=== PATIENT | male | born 1965 | race African-American/Black ===

== ENCOUNTER 2022-10-03 12:28 | Inpatient (IN) ==
[2022-10-03 13:09] LABS: Basophils % 0.1 % (0.0-0.8); Eosinophils % 0.1 % (0.00-10.9); Hematocrit 23.9 VOL% (42.0-52.0); Hemoglobin 7.6 GM/DL (14.0-18.0); Immature Granulocytes % 0.8 %; Immature Granulocytes Absolute 0.16 #; Lymphocytes # 0.7 10*3/uL (1.4-4.0); Lymphocytes % 3.3 % (21.2-54.2); Mean Corpuscular HGB Conc 31.8 GM/DL (32-36); Mean Corpuscular Volume 77.9 FL (87-102); Mean Platelet Volume 9.1 FL (9.6-12.0); Monocytes # 0.6 10*3/uL (0.11-0.8); Neutrophils % 92.7 % (38.7-73.9); Platelet Count 548 T/CUMM (130-400); Red Blood Count 3.07 MC/CUMM (3.8-5.5); Red Cell Distribution Width 18.5 % (9.3-17.3); White Blood Count 20.4 T/CUMM (4-12)
[2022-10-03 13:31] LABS: Lymphocytes 4 % (20-55); Total Cells Counted 100
[2022-10-03 13:32] LABS: Anisocytosis 1+; Hypochromia 1+; Microcytosis 1+; Platelet Estimate Increased
[2022-10-03 13:33] LABS: Macrocytosis 1+
[2022-10-03 13:34] LABS: Bacteria,Urine Few /HPF (Few); Bilirubin,Urine Negative (Negative); Blood, Urine Moderate mg/dL (Negative); Glucose,Urine (UA) 50 mg/dL (Negative); Hyaline Casts,Urine 3 /LPF (0-3); Ketones,Urine 5 mg/dL (Negative); Mucus,Urine Occasional /LPF (Occasional); Nitrite,Urine Negative (Negative); Protein,Urine 100 mg/dL (Negative); RBC,Urine 33 /HPF (0-4); Squamous Epithelial Cell,Urine Few /HPF (0-10); Urine Appearance CLOUDY (Clear); Urine Color Yellow (Yellow); Urine Specific Gravity 1.017 (1.001-1.035); Urine Urobilinogen < 2.0 eU/dL (<2.0)
[2022-10-03 13:45] LABS: Alanine Aminotransferase < 9 U/L (16-61); Albumin 2.8 G/DL (3.4-5.0); Alkaline Phosphatase 122 U/L (45-117); Amylase 288 U/L (25-115); Aspartate Amino Transferase 7 U/L (0-37); Blood Urea Nitrogen 204 MG/DL (7-18); Calcium 9.6 MG/DL (8.5-10.1); Carbon Dioxide 11 MMOL/L (21-32); Chloride 100 MMOL/L (98-107); Glucose 98 MG/DL (74-106); Osmolality,Calculated 337.1 MOS/KG (273-304); Sodium 135 MMOL/L (136-145); Total Protein 8.4 G/DL (6.4-8.2)
[2022-10-03 13:52] LABS: Potassium 6.1 MMOL/L (3.5-5.1)
[2022-10-03] MEDS ORDERED: cefTRIAXone 1,000 MG VIAL IM STA (15:10)
[2022-10-03] MEDS ORDERED: SODIUM CHLORIDE 0.9% 1,000 ML IV STA (15:11)
[2022-10-03] MEDS ORDERED: ACETAMINOPHEN 325 MG TABLET PO PRN (15:57)
[2022-10-03] MEDS ORDERED: INSULIN REGULAR 10 UNIT, CALCIUM GLUCONATE 1,000 MG in DEXTROSE 10% 250 ML IV ONE (16:12)
[2022-10-03 16:24] LABS: Cancer Antigen 19-9 9.94 U/ML (0-35); Carcinoembryonic Antigen 0.9 NG/ML (0.0-5.0)
[2022-10-03 16:35] LABS: Folate 15.91 NG/ML (5.38-24.0); Vitamin B12 > 2000 PG/ML (211-911)
[2022-10-03 16:47] LABS: % Iron Saturation 15.7 % (18-50); Ferritin 1585.6 ng/mL (26-388)
[2022-10-03] MEDS ORDERED: LEVALBUTEROL 1.25 MG/3 ML NEB RESP TX PRN (18:29)
[2022-10-03 18:40] LABS: Arterial Base Excess iSTAT -13 MMOL/L (-2.5-2.5); Arterial Bicarbonate iSTAT 12.6 MMOL/L (20-26); Arterial O2 Saturation iSTAT 97 % (95-100); Arterial PCO2 iSTAT 26 MM HG (35-48); Arterial PO2 iSTAT 95 MM HG (80-95); Arterial Total CO2 iSTAT 13 MMO/L (23-27); Arterial pH iSTAT 7.288 (7.35-7.45)
[2022-10-03] MEDS: HEPARIN 5,000 UNIT/1 ML VIAL SUBCUT SCH (18:56)
[2022-10-03] MEDS: SODIUM BICARB INJ 50 MEQ in DEXTROSE 5% NACL 0.45% 1,000 ML IV SCH (19:48)
[2022-10-03] MEDS: DOCUSATE SODIUM 100 MG CAPSULE PO SCH (21:10)
[2022-10-03] MEDS: cefTRIAXone 1,000 MG in SODIUM CHLORIDE 0.9% 100 ML IV SCH (21:11)
[2022-10-03] MEDS ORDERED: PANTOPRAZOLE 40 MG TABLET PO ONE (23:00)
[2022-10-04] MEDS: SODIUM BICARB INJ 50 MEQ in DEXTROSE 5% NACL 0.45% 1,000 ML IV SCH (00:32)
[2022-10-04 06:07] LABS: INR 1.3; PT Patient Result 14.5 SECS (10.1-12.1)
[2022-10-04 06:40] LABS: Risk Ratio 2.59; Thyroid Stimulating Hormone 1.15 uIU/ml (0.358-3.74); VLDL Cholesterol 13.2 MG/DL
[2022-10-04 06:54] LABS: Alanine Aminotransferase < 6 U/L (16-61); Albumin 2.3 G/DL (3.4-5.0); Alkaline Phosphatase 99 U/L (45-117); Aspartate Amino Transferase 9 U/L (0-37); Bilirubin,Total < 0.39 MG/DL (0.20-1.00); Blood Urea Nitrogen 193 MG/DL (7-18); Calcium 9.7 MG/DL (8.5-10.1); Carbon Dioxide 13 MMOL/L (21-32); Chloride 105 MMOL/L (98-107); Glucose 104 MG/DL (74-106); Osmolality,Calculated 336.8 MOS/KG (273-304); Sodium 137 MMOL/L (136-145)
[2022-10-04 07:00] LABS: Basophils % 0.1 % (0.0-0.8); Eosinophils # 0.1 10*3/uL (0.0-0.87); Eosinophils % 0.9 % (0.00-10.9); Hematocrit 20.7 VOL% (42.0-52.0); Hemoglobin 6.6 GM/DL (14.0-18.0); Immature Granulocytes % 0.7 %; Immature Granulocytes Absolute 0.11 #; Lymphocytes # 0.8 10*3/uL (1.4-4.0); Mean Corpuscular HGB Conc 31.9 GM/DL (32-36); Mean Corpuscular Volume 77.8 FL (87-102); Mean Platelet Volume 9.8 FL (9.6-12.0); Monocytes # 0.8 10*3/uL (0.11-0.8); Neutrophils % 88.3 % (38.7-73.9); Platelet Count 494 T/CUMM (130-400); Red Blood Count 2.66 MC/CUMM (3.8-5.5); Red Cell Distribution Width 18.5 % (9.3-17.3); White Blood Count 15.3 T/CUMM (4-12)
[2022-10-04 07:04] LABS: Potassium 6.1 MMOL/L (3.5-5.1)
[2022-10-04] MEDS ORDERED: SODIUM CHLORIDE 0.9% 1,000 ML IV PRN (07:30)
[2022-10-04] MEDS ORDERED: INSULIN REGULAR 10 UNIT, CALCIUM GLUCONATE 1,000 MG in DEXTROSE 10% 250 ML IV ONE (08:00)
[2022-10-04] MEDS: POLYETHYLENE GLYCOL POWDER 17 GM PACK PO SCH (11:19)
[2022-10-04] MEDS: PANTOPRAZOLE 40 MG TABLET PO SCH (11:19)
[2022-10-04] MEDS: DOCUSATE SODIUM 100 MG CAPSULE PO SCH ×2 (11:19→22:39)
[2022-10-04] MEDS ORDERED: DIAZEPAM 5 MG TABLET PO ONE (11:26)
[2022-10-04] MEDS ORDERED: SODIUM BICARB INJ 150 MEQ in DEXTROSE 5% NACL 0.45% 1,000 ML IV SCH (12:56)
[2022-10-04] MEDS: SODIUM ZIRCONIUM CYCLOSILICATE 10 GM PACK PO SCH ×2 (16:37→22:38)
[2022-10-04] MEDS: cefTRIAXone 1,000 MG in SODIUM CHLORIDE 0.9% 100 ML IV SCH (22:38)
[2022-10-05 07:01] LABS: Total Protein (Chem) 8.1 G/DL (6.4-8.3)
[2022-10-05 08:30] LABS: Albumin (SPE) Rel % 45.1 %; Alpha 1 (SPE) Rel % 5.5 %; Alpha 2 (SPE) Rel % 14.4 %; Beta (SPE) Rel % 10.4 %; Gamma (SPE) Rel % 24.6 %
[2022-10-05 08:32] LABS: Basophils # 0.1 10*3/uL (0.0-0.2); Basophils % 0.5 % (0.0-0.8); Eosinophils # 0.2 10*3/uL (0.0-0.87); Eosinophils % 1.2 % (0.00-10.9); Hematocrit 26.5 VOL% (42.0-52.0); Hemoglobin 8.6 GM/DL (14.0-18.0); Immature Granulocytes % 0.5 %; Immature Granulocytes Absolute 0.08 #; Lymphocytes # 0.8 10*3/uL (1.4-4.0); Lymphocytes % 5.4 % (21.2-54.2); Mean Corpuscular HGB Conc 32.5 GM/DL (32-36); Mean Platelet Volume 9.9 FL (9.6-12.0); Monocytes # 1.1 10*3/uL (0.11-0.8); Monocytes % 6.9 % (1.7-12.7); Neutrophils % 85.5 % (38.7-73.9); Platelet Count 469 T/CUMM (130-400); Red Blood Count 3.27 MC/CUMM (3.8-5.5); Red Cell Distribution Width 19.1 % (9.3-17.3); White Blood Count 15.4 T/CUMM (4-12)
[2022-10-05 08:36] LABS: Albumin (SPE) 3.7 G/DL (3.2-5.3); Alpha 1 (SPE) 0.4 G/DL (0.1-0.4)
[2022-10-05 08:37] LABS: Alpha 2 (SPE) 1.2 G/DL (0.4-1.0); Beta (SPE) 0.8 G/DL (0.5-1.1)
[2022-10-05 08:44] LABS: Osmolality,Calculated 335.1 MOS/KG (273-304); Potassium 5.7 MMOL/L (3.5-5.1)
[2022-10-05] MEDS: PANTOPRAZOLE 40 MG TABLET PO SCH (09:03)
[2022-10-05] MEDS: DOCUSATE SODIUM 100 MG CAPSULE PO SCH ×2 (09:03→22:01)
[2022-10-05] MEDS: ONDANSETRON 4 MG/2 ML VIAL IV PRN (09:03)
[2022-10-05] MEDS: POLYETHYLENE GLYCOL POWDER 17 GM PACK PO SCH (09:03)
[2022-10-05] MEDS: SODIUM ZIRCONIUM CYCLOSILICATE 10 GM PACK PO SCH ×3 (09:03→22:01)
[2022-10-06 06:01] LABS: Basophils % 0.2 % (0.0-0.8); Eosinophils # 0.2 10*3/uL (0.0-0.87); Eosinophils % 1.2 % (0.00-10.9); Hematocrit 25.1 VOL% (42.0-52.0); Hemoglobin 8.2 GM/DL (14.0-18.0); Immature Granulocytes % 0.8 %; Immature Granulocytes Absolute 0.13 #; Lymphocytes # 1.1 10*3/uL (1.4-4.0); Lymphocytes % 6.8 % (21.2-54.2); Mean Corpuscular HGB Conc 32.7 GM/DL (32-36); Mean Corpuscular Volume 80.7 FL (87-102); Platelet Count 436 T/CUMM (130-400); Red Blood Count 3.11 MC/CUMM (3.8-5.5); Red Cell Distribution Width 19.3 % (9.3-17.3); White Blood Count 16.5 T/CUMM (4-12)
[2022-10-06 06:20] LABS: Calcium 9.6 MG/DL (8.5-10.1); Potassium 4.9 MMOL/L (3.5-5.1)
[2022-10-06] MEDS: ONDANSETRON 4 MG/2 ML VIAL IV PRN ×2 (08:01→13:20)
[2022-10-06] MEDS: DOCUSATE SODIUM 100 MG CAPSULE PO SCH ×2 (09:04→21:48)
[2022-10-06] MEDS: LINACLOTIDE 145 MCG CAPSULE PO SCH (09:04)
[2022-10-06] MEDS: SODIUM ZIRCONIUM CYCLOSILICATE 10 GM PACK PO SCH (09:04)
[2022-10-06] MEDS: PANTOPRAZOLE 40 MG TABLET PO SCH (09:04)
[2022-10-06] MEDS: POLYETHYLENE GLYCOL POWDER 17 GM PACK PO SCH (09:06)
[2022-10-07] MEDS: ALUMINUM/MAGNES/SIMETH MAX STR 30 ML UDCUP PO PRN (02:51)
[2022-10-07 05:51] LABS: Basophils # 0.1 10*3/uL (0.0-0.2); Basophils % 0.3 % (0.0-0.8); Eosinophils # 0.2 10*3/uL (0.0-0.87); Eosinophils % 1.3 % (0.00-10.9); Hematocrit 24.6 VOL% (42.0-52.0); Immature Granulocytes % 0.8 %; Immature Granulocytes Absolute 0.12 #; Lymphocytes % 6.4 % (21.2-54.2); Mean Corpuscular HGB Conc 32.5 GM/DL (32-36); Mean Corpuscular Volume 79.4 FL (87-102); Mean Platelet Volume 10.1 FL (9.6-12.0); Monocytes # 1.1 10*3/uL (0.11-0.8); Monocytes % 6.7 % (1.7-12.7); Neutrophils % 84.5 % (38.7-73.9); Platelet Count 447 T/CUMM (130-400); Red Cell Distribution Width 19.3 % (9.3-17.3); White Blood Count 15.7 T/CUMM (4-12)
[2022-10-07 06:24] LABS: Osmolality,Calculated 334.2 MOS/KG (273-304); Potassium 4.2 MMOL/L (3.5-5.1)
[2022-10-07] MEDS: ONDANSETRON 4 MG/2 ML VIAL IV PRN (08:03)
[2022-10-07] MEDS: PANTOPRAZOLE 40 MG TABLET PO SCH (10:03)
[2022-10-07] MEDS: LINACLOTIDE 145 MCG CAPSULE PO SCH (10:03)
[2022-10-07] MEDS: DOCUSATE SODIUM 100 MG CAPSULE PO SCH ×2 (10:04→21:16)
[2022-10-07] MEDS: POLYETHYLENE GLYCOL POWDER 17 GM PACK PO SCH (10:06)
[2022-10-07] MEDS: SODIUM BICARBONATE 650 MG TABLET PO SCH ×2 (16:18→21:16)
[2022-10-08 05:47] LABS: Basophils # 0.1 10*3/uL (0.0-0.2); Basophils % 0.5 % (0.0-0.8); Eosinophils # 0.3 10*3/uL (0.0-0.87); Eosinophils % 2.4 % (0.00-10.9); Hematocrit 22.7 VOL% (42.0-52.0); Hemoglobin 7.4 GM/DL (14.0-18.0); Immature Granulocytes % 0.6 %; Immature Granulocytes Absolute 0.08 #; Lymphocytes # 0.9 10*3/uL (1.4-4.0); Lymphocytes % 7.2 % (21.2-54.2); Mean Corpuscular HGB Conc 32.6 GM/DL (32-36); Mean Corpuscular Volume 79.6 FL (87-102); Mean Platelet Volume 9.7 FL (9.6-12.0); Monocytes % 7.7 % (1.7-12.7); Neutrophils % 81.6 % (38.7-73.9); Platelet Count 414 T/CUMM (130-400); Red Blood Count 2.85 MC/CUMM (3.8-5.5); Red Cell Distribution Width 19.4 % (9.3-17.3)
[2022-10-08 06:07] LABS: Calcium 10.1 MG/DL (8.5-10.1); Osmolality,Calculated 338.7 MOS/KG (273-304); Potassium 4.3 MMOL/L (3.5-5.1)
[2022-10-08 06:58] LABS: Random Urine Protein (Bench) 104 MG/DL (<11.9)
[2022-10-08] MEDS: LINACLOTIDE 145 MCG CAPSULE PO SCH (07:30)
[2022-10-08] MEDS: ONDANSETRON 4 MG/2 ML VIAL IV PRN ×2 (07:48→15:32)
[2022-10-08] MEDS: POLYETHYLENE GLYCOL POWDER 17 GM PACK PO SCH (09:53)
[2022-10-08] MEDS: DOCUSATE SODIUM 100 MG CAPSULE PO SCH ×2 (09:53→20:52)
[2022-10-08] MEDS: SODIUM BICARBONATE 650 MG TABLET PO SCH ×3 (09:53→20:52)
[2022-10-08] MEDS: MORPHINE 2 MG/1 ML SYRINGE IV PRN (12:58)
[2022-10-08] MEDS ORDERED: cefTRIAXone 1,000 MG in SODIUM CHLORIDE 0.9% 100 ML IV ONE (14:22)
[2022-10-08] MEDS: PANTOPRAZOLE 40 MG TABLET PO SCH (15:29)
[2022-10-08 17:50] LABS: Glucose,Urine (UA) Negative (Negative); Protein,Urine 30 mg/dL (Negative); Urine Appearance Clear (Clear); Urine Color Yellow (Yellow); Urine pH 5.5 (4.5-8.0)
[2022-10-08 17:51] LABS: Bilirubin,Urine Negative (Negative); Blood, Urine Trace mg/dL (Negative); Ketones,Urine Trace mg/dL (Negative); Nitrite,Urine Negative (Negative); Urine Urobilinogen 0.2 eU/dL (<2.0)
[2022-10-08 17:53] LABS: Bacteria,Urine Occasional /HPF (Few); Hyaline Casts,Urine 5 /LPF (0-3); Mucus,Urine Occasional /LPF (Occasional); RBC,Urine 2 /HPF (0-4); Squamous Epithelial Cell,Urine Occasional /HPF (0-10)
[2022-10-08] MEDS: ALUMINUM/MAGNES/SIMETH MAX STR 30 ML UDCUP PO PRN (18:35)
[2022-10-09] MEDS: ONDANSETRON 4 MG/2 ML VIAL IV PRN (05:35)
[2022-10-09 06:00] LABS: Basophils # 0.1 10*3/uL (0.0-0.2); Basophils % 0.5 % (0.0-0.8); Eosinophils # 0.3 10*3/uL (0.0-0.87); Eosinophils % 2.1 % (0.00-10.9); Hematocrit 24.2 VOL% (42.0-52.0); Hemoglobin 7.8 GM/DL (14.0-18.0); Immature Granulocytes % 0.9 %; Immature Granulocytes Absolute 0.11 #; Lymphocytes # 0.9 10*3/uL (1.4-4.0); Lymphocytes % 7.1 % (21.2-54.2); Mean Corpuscular HGB Conc 32.2 GM/DL (32-36); Mean Corpuscular Volume 80.4 FL (87-102); Monocytes # 1.2 10*3/uL (0.11-0.8); Monocytes % 9.8 % (1.7-12.7); Neutrophils % 79.6 % (38.7-73.9); Platelet Count 459 T/CUMM (130-400); Red Blood Count 3.01 MC/CUMM (3.8-5.5); Red Cell Distribution Width 19.3 % (9.3-17.3); White Blood Count 12.6 T/CUMM (4-12)
[2022-10-09] MEDS ORDERED: cefTRIAXone 1,000 MG in SODIUM CHLORIDE 0.9% 100 ML IV ONE (06:00)
[2022-10-09 06:30] LABS: Potassium 4.4 MMOL/L (3.5-5.1)
[2022-10-09] MEDS: PANTOPRAZOLE 40 MG TABLET PO SCH (09:10)
[2022-10-09] MEDS: DOCUSATE SODIUM 100 MG CAPSULE PO SCH ×2 (09:10→20:56)
[2022-10-09] MEDS: SODIUM BICARBONATE 650 MG TABLET PO SCH ×3 (09:10→20:57)
[2022-10-09] MEDS: POLYETHYLENE GLYCOL POWDER 17 GM PACK PO SCH (09:10)
[2022-10-09] MEDS: LINACLOTIDE 145 MCG CAPSULE PO SCH (09:10)
[2022-10-09] MEDS ORDERED: DEXTROSE 5% NACL 0.45% 1,000 ML IV SCH (13:30)
[2022-10-09] MEDS: MORPHINE 2 MG/1 ML SYRINGE IV PRN (14:26)
[2022-10-10] MEDS: PANTOPRAZOLE 40 MG TABLET PO SCH ×2 (05:10→08:31)
[2022-10-10 05:26] LABS: Basophils # 0.1 10*3/uL (0.0-0.2); Basophils % 0.4 % (0.0-0.8); Eosinophils # 0.3 10*3/uL (0.0-0.87); Eosinophils % 2.4 % (0.00-10.9); Hematocrit 21.9 VOL% (42.0-52.0); Immature Granulocytes % 0.9 %; Immature Granulocytes Absolute 0.11 #; Lymphocytes # 0.7 10*3/uL (1.4-4.0); Lymphocytes % 5.4 % (21.2-54.2); Mean Corpuscular Volume 81.4 FL (87-102); Mean Platelet Volume 9.6 FL (9.6-12.0); Monocytes # 1.3 10*3/uL (0.11-0.8); Monocytes % 9.7 % (1.7-12.7); Neutrophils % 81.2 % (38.7-73.9); Platelet Count 368 T/CUMM (130-400); Red Blood Count 2.69 MC/CUMM (3.8-5.5); Red Cell Distribution Width 19.6 % (9.3-17.3); White Blood Count 12.9 T/CUMM (4-12)
[2022-10-10 05:50] LABS: Calcium 10.3 MG/DL (8.5-10.1); Osmolality,Calculated 339.7 MOS/KG (273-304); Potassium 4.4 MMOL/L (3.5-5.1)
[2022-10-10] MEDS ORDERED: SODIUM CHLORIDE 0.9% 1,000 ML IV PRN (08:25)
[2022-10-10] MEDS: DOCUSATE SODIUM 100 MG CAPSULE PO SCH ×2 (08:31→20:53)
[2022-10-10] MEDS: SODIUM BICARBONATE 650 MG TABLET PO SCH ×4 (08:31→21:00)
[2022-10-10] MEDS: LINACLOTIDE 145 MCG CAPSULE PO SCH (08:31)
[2022-10-10] MEDS: POLYETHYLENE GLYCOL POWDER 17 GM PACK PO SCH (08:34)
[2022-10-10] MEDS: MORPHINE 2 MG/1 ML SYRINGE IV PRN (18:10)
[2022-10-11] MEDS: ONDANSETRON 4 MG/2 ML VIAL IV PRN (04:34)
[2022-10-11] MEDS: MORPHINE 2 MG/1 ML SYRINGE IV PRN ×2 (04:35→18:16)
[2022-10-11 05:31] LABS: Basophils % 0.3 % (0.0-0.8); Eosinophils # 0.3 10*3/uL (0.0-0.87); Eosinophils % 2.2 % (0.00-10.9); Hematocrit 26.9 VOL% (42.0-52.0); Hemoglobin 8.5 GM/DL (14.0-18.0); Immature Granulocytes Absolute 0.12 #; Lymphocytes # 0.8 10*3/uL (1.4-4.0); Lymphocytes % 6.2 % (21.2-54.2); Mean Corpuscular HGB Conc 31.6 GM/DL (32-36); Mean Corpuscular Volume 82.3 FL (87-102); Mean Platelet Volume 9.9 FL (9.6-12.0); Monocytes # 1.3 10*3/uL (0.11-0.8); Monocytes % 10.5 % (1.7-12.7); Neutrophils % 79.8 % (38.7-73.9); Platelet Count 366 T/CUMM (130-400); Red Blood Count 3.27 MC/CUMM (3.8-5.5); Red Cell Distribution Width 18.6 % (9.3-17.3); White Blood Count 12.5 T/CUMM (4-12)
[2022-10-11 06:06] LABS: Calcium 10.1 MG/DL (8.5-10.1); Osmolality,Calculated 334.3 MOS/KG (273-304); Potassium 4.2 MMOL/L (3.5-5.1)
[2022-10-11] MEDS: LINACLOTIDE 145 MCG CAPSULE PO SCH (09:24)
[2022-10-11] MEDS: SODIUM BICARBONATE 650 MG TABLET PO SCH ×3 (09:24→20:30)
[2022-10-11] MEDS: PANTOPRAZOLE 40 MG VIAL IV SCH (09:25)
[2022-10-11] MEDS: DOCUSATE SODIUM 100 MG CAPSULE PO SCH ×2 (09:27→20:30)
[2022-10-11] MEDS: POLYETHYLENE GLYCOL POWDER 17 GM PACK PO SCH (09:41)
[2022-10-12 05:07] LABS: Basophils # 0.1 10*3/uL (0.0-0.2); Basophils % 0.5 % (0.0-0.8); Eosinophils # 0.4 10*3/uL (0.0-0.87); Eosinophils % 2.9 % (0.00-10.9); Hematocrit 29.2 VOL% (42.0-52.0); Hemoglobin 9.3 GM/DL (14.0-18.0); Immature Granulocytes % 1.4 %; Immature Granulocytes Absolute 0.17 #; Lymphocytes # 1.2 10*3/uL (1.4-4.0); Lymphocytes % 9.6 % (21.2-54.2); Mean Corpuscular HGB Conc 31.8 GM/DL (32-36); Mean Corpuscular Volume 82.7 FL (87-102); Mean Platelet Volume 9.6 FL (9.6-12.0); Monocytes # 1.2 10*3/uL (0.11-0.8); Monocytes % 9.5 % (1.7-12.7); Neutrophils % 76.1 % (38.7-73.9); Platelet Count 355 T/CUMM (130-400); Red Blood Count 3.53 MC/CUMM (3.8-5.5); Red Cell Distribution Width 18.7 % (9.3-17.3); White Blood Count 12.6 T/CUMM (4-12)
[2022-10-12] MEDS: ONDANSETRON 4 MG/2 ML VIAL IV PRN (05:25)
[2022-10-12 05:27] LABS: Calcium 10.8 MG/DL (8.5-10.1); Potassium 4.5 MMOL/L (3.5-5.1)
[2022-10-12] MEDS ORDERED: cefTRIAXone 1,000 MG in SODIUM CHLORIDE 0.9% 100 ML IV ONE (06:30)
[2022-10-12] MEDS: SODIUM CHLORIDE 0.9% 1,000 ML IV SCH ×2 (06:58→18:01)
[2022-10-12] MEDS ORDERED: MIDAZOLAM 2 MG/2 ML VIAL ONE (07:04)
[2022-10-12] MEDS ORDERED: fentaNYL 100 MCG/2 ML VIAL ONE (07:04)
[2022-10-12] MEDS ORDERED: SEVOFLURANE 1 UNIT/15 MINUTE INH ONE (07:38)
[2022-10-12] MEDS ORDERED: propofoL 200 MG/20 ML VIAL IV ONE (07:38)
[2022-10-12] MEDS ORDERED: LIDOCAINE 2% 5 ML VIAL ONE (07:38)
[2022-10-12] MEDS ORDERED: ONDANSETRON 4 MG/2 ML VIAL IV PRN (07:52)
[2022-10-12] MEDS ORDERED: HYDROmorphone 1 MG/1 ML SYRINGE IV PRN (07:52)
[2022-10-12] MEDS: DOCUSATE SODIUM 100 MG CAPSULE PO SCH ×2 (08:58→20:26)
[2022-10-12] MEDS: PANTOPRAZOLE 40 MG VIAL IV SCH (08:59)
[2022-10-12] MEDS: LINACLOTIDE 145 MCG CAPSULE PO SCH (08:59)
[2022-10-12] MEDS: POLYETHYLENE GLYCOL POWDER 17 GM PACK PO SCH (08:59)
[2022-10-12] MEDS: MORPHINE 2 MG/1 ML SYRINGE IV PRN ×2 (08:59→13:39)
[2022-10-12] MEDS: SODIUM BICARBONATE 650 MG TABLET PO SCH ×3 (09:17→20:26)
[2022-10-13] MEDS: ONDANSETRON 4 MG/2 ML VIAL IV PRN (03:40)
[2022-10-13] MEDS: SODIUM CHLORIDE 0.9% 1,000 ML IV SCH (03:40)
[2022-10-13 05:00] LABS: Basophils # 0.1 10*3/uL (0.0-0.2); Basophils % 0.4 % (0.0-0.8); Eosinophils # 0.3 10*3/uL (0.0-0.87); Eosinophils % 2.8 % (0.00-10.9); Hemoglobin 8.3 GM/DL (14.0-18.0); Immature Granulocytes % 1.1 %; Immature Granulocytes Absolute 0.14 #; Lymphocytes % 8.1 % (21.2-54.2); Mean Corpuscular HGB Conc 30.7 GM/DL (32-36); Mean Platelet Volume 9.7 FL (9.6-12.0); Monocytes # 1.3 10*3/uL (0.11-0.8); Monocytes % 10.4 % (1.7-12.7); Neutrophils % 77.2 % (38.7-73.9); Platelet Count 340 T/CUMM (130-400); Red Blood Count 3.14 MC/CUMM (3.8-5.5); Red Cell Distribution Width 18.8 % (9.3-17.3); White Blood Count 12.3 T/CUMM (4-12)
[2022-10-13 05:27] LABS: Calcium 10.7 MG/DL (8.5-10.1); Osmolality,Calculated 319.4 MOS/KG (273-304); Potassium 4.4 MMOL/L (3.5-5.1)
[2022-10-13] MEDS: DOCUSATE SODIUM 100 MG CAPSULE PO SCH ×2 (08:33→21:53)
[2022-10-13] MEDS: LINACLOTIDE 145 MCG CAPSULE PO SCH (08:33)
[2022-10-13] MEDS: SODIUM BICARBONATE 650 MG TABLET PO SCH ×3 (08:34→21:53)
[2022-10-13] MEDS: PANTOPRAZOLE 40 MG VIAL IV SCH (08:34)
[2022-10-13] MEDS: POLYETHYLENE GLYCOL POWDER 17 GM PACK PO SCH (08:35)
[2022-10-13] MEDS: ONDANSETRON 4 MG/2 ML VIAL IV SCH ×2 (10:49→17:14)
[2022-10-13] MEDS: MORPHINE 2 MG/1 ML SYRINGE IV PRN ×3 (10:49→22:58)
[2022-10-13] MEDS: DEXTROSE 5% NACL 0.45% 1,000 ML IV SCH ×2 (17:32→18:00)
[2022-10-14] MEDS: ONDANSETRON 4 MG/2 ML VIAL IV SCH ×3 (02:55→17:39)
[2022-10-14 06:01] LABS: Basophils # 0.1 10*3/uL (0.0-0.2); Basophils % 0.3 % (0.0-0.8); Eosinophils # 0.2 10*3/uL (0.0-0.87); Eosinophils % 1.5 % (0.00-10.9); Hemoglobin 8.2 GM/DL (14.0-18.0); Immature Granulocytes Absolute 0.14 #; Mean Corpuscular HGB Conc 30.4 GM/DL (32-36); Mean Corpuscular Volume 86.8 FL (87-102); Mean Platelet Volume 9.8 FL (9.6-12.0); Monocytes # 1.2 10*3/uL (0.11-0.8); Monocytes % 8.4 % (1.7-12.7); Neutrophils % 81.8 % (38.7-73.9); Platelet Count 327 T/CUMM (130-400); Red Blood Count 3.11 MC/CUMM (3.8-5.5); Red Cell Distribution Width 18.8 % (9.3-17.3); White Blood Count 14.5 T/CUMM (4-12)
[2022-10-14 06:40] LABS: Calcium 10.6 MG/DL (8.5-10.1); Osmolality,Calculated 305.8 MOS/KG (273-304); Potassium 4.6 MMOL/L (3.5-5.1)
[2022-10-14] MEDS: DOCUSATE SODIUM 100 MG CAPSULE PO SCH ×2 (09:31→21:45)
[2022-10-14] MEDS: SODIUM BICARBONATE 650 MG TABLET PO SCH ×3 (09:31→21:45)
[2022-10-14] MEDS: amLODIPine 5 MG TABLET PO SCH (09:32)
[2022-10-14] MEDS: LINACLOTIDE 145 MCG CAPSULE PO SCH (09:32)
[2022-10-14] MEDS: POLYETHYLENE GLYCOL POWDER 17 GM PACK PO SCH (09:32)
[2022-10-14] MEDS: PANTOPRAZOLE 40 MG VIAL IV SCH (11:01)
[2022-10-14] MEDS: MORPHINE 2 MG/1 ML SYRINGE IV PRN (17:38)
[2022-10-15] MEDS: ONDANSETRON 4 MG/2 ML VIAL IV SCH ×3 (02:32→17:17)
[2022-10-15] MEDS: HEPARIN 5,000 UNIT/1 ML VIAL SUBCUT SCH (04:15)
[2022-10-15 05:00] LABS: Basophils # 0.1 10*3/uL (0.0-0.2); Basophils % 0.5 % (0.0-0.8); Eosinophils # 0.4 10*3/uL (0.0-0.87); Eosinophils % 3.3 % (0.00-10.9); Hematocrit 26.3 VOL% (42.0-52.0); Hemoglobin 8.1 GM/DL (14.0-18.0); Immature Granulocytes % 1.3 %; Immature Granulocytes Absolute 0.17 #; Lymphocytes # 1.1 10*3/uL (1.4-4.0); Lymphocytes % 8.6 % (21.2-54.2); Mean Corpuscular HGB Conc 30.8 GM/DL (32-36); Mean Corpuscular Volume 87.7 FL (87-102); Mean Platelet Volume 10.2 FL (9.6-12.0); Monocytes % 7.9 % (1.7-12.7); Neutrophils % 78.4 % (38.7-73.9); Platelet Count 302 T/CUMM (130-400); Red Cell Distribution Width 18.8 % (9.3-17.3); White Blood Count 13.1 T/CUMM (4-12)
[2022-10-15 05:29] LABS: Calcium 11.1 MG/DL (8.5-10.1); Osmolality,Calculated 297.7 MOS/KG (273-304)
[2022-10-15] MEDS ORDERED: DENOSUMAB 120 MG/1.7 ML VIAL SUBCUT ONE (08:41)
[2022-10-15] MEDS: SODIUM BICARBONATE 650 MG TABLET PO SCH ×3 (08:43→20:25)
[2022-10-15] MEDS: PANTOPRAZOLE 40 MG VIAL IV SCH (08:43)
[2022-10-15] MEDS: amLODIPine 5 MG TABLET PO SCH (08:43)
[2022-10-15] MEDS: LINACLOTIDE 145 MCG CAPSULE PO SCH (08:43)
[2022-10-15] MEDS: POLYETHYLENE GLYCOL POWDER 17 GM PACK PO SCH (08:43)
[2022-10-15] MEDS: DOCUSATE SODIUM 100 MG CAPSULE PO SCH ×2 (08:44→20:25)
[2022-10-15] MEDS: MORPHINE 2 MG/1 ML SYRINGE IV PRN ×2 (13:18→18:21)
[2022-10-15] MEDS ORDERED: ZOLEDRONIC ACID 4 MG/100 ML PREMIX IV SCH (15:00)
[2022-10-15] MEDS ORDERED: ZOLEDRONIC ACID 4 MG/100 ML PREMIX IV ONE (15:00)
[2022-10-16] MEDS: ONDANSETRON 4 MG/2 ML VIAL IV SCH (02:28)
[2022-10-16 04:33] LABS: Basophils # 0.1 10*3/uL (0.0-0.2); Basophils % 0.5 % (0.0-0.8); Eosinophils # 0.4 10*3/uL (0.0-0.87); Hematocrit 27.7 VOL% (42.0-52.0); Hemoglobin 8.2 GM/DL (14.0-18.0); Immature Granulocytes % 1.3 %; Immature Granulocytes Absolute 0.16 #; Lymphocytes # 0.9 10*3/uL (1.4-4.0); Lymphocytes % 7.1 % (21.2-54.2); Mean Corpuscular HGB Conc 29.6 GM/DL (32-36); Mean Corpuscular Volume 87.1 FL (87-102); Mean Platelet Volume 9.5 FL (9.6-12.0); Monocytes # 0.7 10*3/uL (0.11-0.8); Monocytes % 5.4 % (1.7-12.7); Neutrophils % 82.7 % (38.7-73.9); Platelet Count 318 T/CUMM (130-400); Red Blood Count 3.18 MC/CUMM (3.8-5.5); Red Cell Distribution Width 18.6 % (9.3-17.3); White Blood Count 12.5 T/CUMM (4-12)
[2022-10-16 04:54] LABS: Calcium 11.1 MG/DL (8.5-10.1); Osmolality,Calculated 295.6 MOS/KG (273-304)
[2022-10-16 04:57] LABS: Alanine Aminotransferase < 9 U/L (16-61); Albumin 2.3 G/DL (3.4-5.0); Alkaline Phosphatase 106 U/L (45-117); Aspartate Amino Transferase 13 U/L (0-37); Blood Urea Nitrogen 32 MG/DL (7-18); Calcium 11.3 MG/DL (8.5-10.1); Carbon Dioxide 26 MMOL/L (21-32); Chloride 111 MMOL/L (98-107); Glucose 89 MG/DL (74-106); Osmolality,Calculated 291.8 MOS/KG (273-304); Potassium 3.9 MMOL/L (3.5-5.1); Sodium 144 MMOL/L (136-145)
[2022-10-16] MEDS ORDERED: BUPIVACAINE MPF 0.25% 10 ML VIAL ONE (09:13)
[2022-10-16] MEDS ORDERED: HEPARIN 5,000 UNIT/1 ML VIAL ONE (09:13)
[2022-10-16] MEDS ORDERED: LIDOCAINE 1% 5 ML VIAL ONE (09:13)
[2022-10-16] MEDS ORDERED: fentaNYL 100 MCG/2 ML VIAL ONE (09:29)
[2022-10-16] MEDS ORDERED: MIDAZOLAM 2 MG/2 ML VIAL ONE ×2 (09:30→09:46)
[2022-10-16] MEDS ORDERED: propofoL 200 MG/20 ML VIAL IV ONE (09:40)
[2022-10-16] MEDS ORDERED: SODIUM CHLORIDE 0.9% 1,000 ML IV ONE (09:40)
[2022-10-16] MEDS ORDERED: SODIUM CHLORIDE 0.9% 100 ML IV ONE (09:40)
[2022-10-16] MEDS ORDERED: LIDOCAINE 2% 5 ML VIAL ONE (09:40)
[2022-10-16] MEDS ORDERED: TISSUE ADHESIVE 1 EACH APPLICATOR TOP ONE (10:03)
[2022-10-16] MEDS: SODIUM BICARBONATE 650 MG TABLET PO SCH ×3 (11:02→21:12)
[2022-10-16] MEDS: PANTOPRAZOLE 40 MG VIAL IV SCH (11:02)
[2022-10-16] MEDS: amLODIPine 5 MG TABLET PO SCH (11:02)
[2022-10-16] MEDS: SODIUM CHLORIDE 0.9% 1,000 ML IV SCH ×2 (11:03→23:57)
[2022-10-16] MEDS: LINACLOTIDE 145 MCG CAPSULE PO SCH (11:03)
[2022-10-16] MEDS: DOCUSATE SODIUM 100 MG CAPSULE PO SCH ×2 (11:04→21:10)
[2022-10-16] MEDS: POLYETHYLENE GLYCOL POWDER 17 GM PACK PO SCH (11:05)
[2022-10-16] MEDS: MORPHINE 2 MG/1 ML SYRINGE IV PRN (16:43)
[2022-10-16] MEDS: ALUMINUM/MAGNES/SIMETH MAX STR 30 ML UDCUP PO PRN (23:58)
[2022-10-17] MEDS: MORPHINE 2 MG/1 ML SYRINGE IV PRN (03:20)
[2022-10-17] MEDS ORDERED: ONDANSETRON 4 MG/2 ML VIAL IV PRN (04:09)
[2022-10-17 05:14] LABS: Basophils % 0.3 % (0.0-0.8); Eosinophils % 0.4 % (0.00-10.9); Hemoglobin 7.9 GM/DL (14.0-18.0); Immature Granulocytes % 1.6 %; Immature Granulocytes Absolute 0.11 #; Lymphocytes # 0.4 10*3/uL (1.4-4.0); Lymphocytes % 6.2 % (21.2-54.2); Mean Corpuscular HGB Conc 30.4 GM/DL (32-36); Mean Platelet Volume 9.6 FL (9.6-12.0); Monocytes # 0.3 10*3/uL (0.11-0.8); Monocytes % 3.9 % (1.7-12.7); Neutrophils % 87.6 % (38.7-73.9); Platelet Count 249 T/CUMM (130-400); Red Blood Count 2.99 MC/CUMM (3.8-5.5); Red Cell Distribution Width 18.6 % (9.3-17.3); White Blood Count 6.9 T/CUMM (4-12)
[2022-10-17 05:20] VITALS: BP 148/80
[2022-10-17 05:41] LABS: Alanine Aminotransferase < 9 U/L (16-61); Albumin 2.1 G/DL (3.4-5.0); Alkaline Phosphatase 83 U/L (45-117); Aspartate Amino Transferase 24 U/L (0-37); Blood Urea Nitrogen 25 MG/DL (7-18); Calcium 9.6 MG/DL (8.5-10.1); Carbon Dioxide 25 MMOL/L (21-32); Chloride 110 MMOL/L (98-107); Glucose 95 MG/DL (74-106); Osmolality,Calculated 286.1 MOS/KG (273-304); Potassium 3.9 MMOL/L (3.5-5.1); Sodium 142 MMOL/L (136-145)
[2022-10-17] MEDS: SODIUM BICARBONATE 650 MG TABLET PO SCH (10:13)
[2022-10-17] MEDS: amLODIPine 5 MG TABLET PO SCH (10:13)
[2022-10-17] MEDS: PANTOPRAZOLE 40 MG VIAL IV SCH (10:13)
[2022-10-17] MEDS: POLYETHYLENE GLYCOL POWDER 17 GM PACK PO SCH (10:16)
[2022-10-17] MEDS: DOCUSATE SODIUM 100 MG CAPSULE PO SCH (10:16)
[2022-10-17] MEDS: LINACLOTIDE 145 MCG CAPSULE PO SCH (10:16)
[2022-10-17 11:03] LABS: Bilirubin,Urine Negative (Negative); Blood, Urine Large mg/dL (Negative); Glucose,Urine (UA) Negative (Negative); Ketones,Urine Negative (Negative); Mucus,Urine Occasional /LPF (Occasional); Nitrite,Urine Negative (Negative); Protein,Urine 100 mg/dL (Negative); RBC,Urine 162 /HPF (0-4); Squamous Epithelial Cell,Urine Occasional /HPF (0-10); Urine Appearance Clear (Clear); Urine Color Yellow (Yellow)
[2022-10-17] MEDS ORDERED: LEVOFLOXACIN INJ 500 MG/100 ML PREMIX IV ONE (11:25)
[2022-10-17] MEDS ORDERED: LEVOFLOXACIN INJ 250 MG/50 ML PREMIX IV SCH (11:30)
[2022-10-17] MEDS: SODIUM CHLORIDE 0.9% 1,000 ML IV SCH (11:44)
== END 2022-10-17 12:21 | disposition home or self-care (01) | DRG 656 ==
LOC: N.ED 12:28 → SUATTDRO 15:57 → N.EDINP 15:57 → N.TELEN 17:56
PROVIDERS: ADMIT Internal Medicine; ATTEND Hospitalist

== ENCOUNTER 2023-01-02 16:29 | Observation (INO) ==
[2023-01-02 20:03] LABS: Basophils % 0.3 % (0.0-0.8); Eosinophils # 0.4 10*3/uL (0.0-0.87); Eosinophils % 4.3 % (0.00-10.9); Hematocrit 21.3 VOL% (42.0-52.0); Hemoglobin 6.5 GM/DL (14.0-18.0); Immature Granulocytes % 6.1 %; Immature Granulocytes Absolute 0.53 #; Lymphocytes # 0.6 10*3/uL (1.4-4.0); Lymphocytes % 7.3 % (21.2-54.2); Mean Corpuscular HGB Conc 30.5 GM/DL (32-36); Mean Corpuscular Volume 89.5 FL (87-102); Monocytes # 0.6 10*3/uL (0.11-0.8); Monocytes % 7.2 % (1.7-12.7); NRBC # 0.06 10*3/uL; Neutrophils % 74.8 % (38.7-73.9); Platelet Count 231 T/CUMM (130-400); Red Blood Count 2.38 MC/CUMM (3.8-5.5); Red Cell Distribution Width 17.8 % (9.3-17.3); White Blood Count 8.63 T/CUMM (4-12)
[2023-01-02 20:21] LABS: Calcium 10.1 MG/DL (8.5-10.1); Osmolality,Calculated 274.8 MOS/KG (273-304); Potassium 3.5 MMOL/L (3.5-5.1)
[2023-01-02 20:24] LABS: Band Neutrophils 5 % (0-10); Eosinophils 4 % (0-10); Lymphocytes 9 % (20-55); Nucleated Red Blood Cells 3 /100 WBC (0-5); Total Cells Counted 100
[2023-01-02 20:25] LABS: Anisocytosis Slight; Elliptocytes Few; Hypochromia 1+; Platelet Estimate Adequate
[2023-01-02] MEDS ORDERED: ACETAMINOPHEN 325 MG TABLET PO PRN (20:55)
[2023-01-02] MEDS ORDERED: PROMETHAZINE 25 MG/1 ML VIAL IM PRN (20:55)
[2023-01-02] MEDS ORDERED: SODIUM CHLORIDE 0.9% 1,000 ML IV PRN (20:55)
[2023-01-02] MEDS ORDERED: hydrALAZINE 20 MG/1 ML VIAL IV PRN (20:55)
[2023-01-02] MEDS ORDERED: FUROSEMIDE 40 MG/4 ML VIAL IV PRN (21:05)
[2023-01-03 05:57] LABS: INR 1.1; PT Patient Result 11.9 SECS (10.1-12.1); Partial Thromboplastin Time 32.1 SECS (23.7-32.9)
[2023-01-03 06:15] LABS: Albumin 2.5 G/DL (3.4-5.0); Bilirubin,Total 0.5 MG/DL (0.20-1.00); Calcium 9.9 MG/DL (8.5-10.1); Potassium 3.6 MMOL/L (3.5-5.1); Total Protein 7.8 G/DL (6.4-8.2)
[2023-01-03 06:25] LABS: Basophils % 0.5 % (0.0-0.8); Eosinophils # 0.4 10*3/uL (0.0-0.87); Eosinophils % 4.9 % (0.00-10.9); Hematocrit 22.7 VOL% (42.0-52.0); Hemoglobin 7.2 GM/DL (14.0-18.0); Immature Granulocytes % 7.7 %; Immature Granulocytes Absolute 0.66 #; Lymphocytes # 0.5 10*3/uL (1.4-4.0); Lymphocytes % 5.6 % (21.2-54.2); Mean Corpuscular HGB Conc 31.7 GM/DL (32-36); Mean Corpuscular Volume 89.4 FL (87-102); Mean Platelet Volume 9.1 FL (9.6-12.0); Monocytes # 0.8 10*3/uL (0.11-0.8); Monocytes % 8.9 % (1.7-12.7); NRBC # 0.02 10*3/uL; Neutrophils % 72.4 % (38.7-73.9); Platelet Count 204 T/CUMM (130-400); Red Blood Count 2.54 MC/CUMM (3.8-5.5); Red Cell Distribution Width 16.1 % (9.3-17.3); White Blood Count 8.57 T/CUMM (4-12)
[2023-01-03 06:51] LABS: Band Neutrophils 1 % (0-10); Eosinophils 5 % (0-10); Lymphocytes 6 % (20-55); Total Cells Counted 100
[2023-01-03 06:52] LABS: Hypochromia Slight; Microcytosis 1+; Ovalocytes Slight
[2023-01-03 06:53] LABS: Platelet Estimate Normal
[2023-01-03 08:52] LABS: Hematocrit 22.6 VOL% (42.0-52.0); Hemoglobin 7.2 GM/DL (14.0-18.0)
[2023-01-03] MEDS ORDERED: SODIUM CHLORIDE 0.9% 1,000 ML IV PRN (08:55)
[2023-01-03 14:56] LABS: Hematocrit 25.3 VOL% (42.0-52.0); Hemoglobin 8.3 GM/DL (14.0-18.0)
[2023-01-03 15:02] LABS: Basophils % 0.3 % (0.0-0.8); Eosinophils # 0.3 10*3/uL (0.0-0.87); Hematocrit 26.2 VOL% (42.0-52.0); Hemoglobin 8.5 GM/DL (14.0-18.0); Immature Granulocytes % 5.7 %; Immature Granulocytes Absolute 0.55 #; Lymphocytes # 0.4 10*3/uL (1.4-4.0); Lymphocytes % 3.8 % (21.2-54.2); Mean Corpuscular HGB Conc 32.4 GM/DL (32-36); Mean Corpuscular Volume 86.8 FL (87-102); Mean Platelet Volume 8.8 FL (9.6-12.0); Monocytes # 0.7 10*3/uL (0.11-0.8); Monocytes % 7.4 % (1.7-12.7); NRBC # 0.05 10*3/uL; Neutrophils % 79.8 % (38.7-73.9); Platelet Count 193 T/CUMM (130-400); Red Blood Count 3.02 MC/CUMM (3.8-5.5); Red Cell Distribution Width 15.8 % (9.3-17.3); White Blood Count 9.57 T/CUMM (4-12)
[2023-01-03 15:43] VITALS: BP 114/66
== END 2023-01-03 15:42 | disposition home or self-care (01) ==
LOC: N.ED 16:29 → N.EDINP 20:55 → INTOOBSV 20:55 → N.TELES 22:04
PROVIDERS: ADMIT Internal Medicine; ATTEND Internal Medicine